=== PATIENT | male | born 1960 | race Caucasian/White ===

== ENCOUNTER 2023-12-05 00:47 | Emergency (ER) | payer OTHER, SELFPAY ==
[2023-12-05 00:49] VITALS: BP 146/98
--- NOTE | 2023-12-05 01:12 | ED.GENMED ---
History of Present Illness
<BERNARD Virgen - Last Filed: 12/05/23 01:37>
General
Chief Complaint: Back Pain
Source: patient
Exam Limitations: none
Time Seen by Provider: 12/05/23 00:52
Nursing documentation reviewed up to this point in time: agreed with
Travel History
Have you had any contact with someone who has COVID-19?: No
Do you have any symptoms of coronavirus? Fever > 100 degrees, chills, cough, shortness of breath, sore throat, loss of taste or smell, muscle aches, or headache?: No
History of Present Illness
History of Present Illness:
63 y/o M presents to ED complaining of back pain. Patient was seen in ED about 1 month after a fall backwards onto ice. Patient XR showed no fracture, only degenerative disease. Patient was discharged home with Ibuprofen. He reports the pain was
constant since his fall but was getting better in the last week. He has been sleeping on the chair for first 3 weeks but switched back to his bed this past week. Tonight, he complains of worsening back pain after he was rolling out of bed. He states
the pain is in his midback. Currently pain is 9/10 and comes around his flank to the front of his abdomen. Patient states the pain is worse with laying down and better with sitting up. He has difficulty moving his back and getting dressed. Patient
has been on Ibuprofen 800mg, 4 pills every 8 hours and Tylenol every 4 hours. Last Ibuprofen at 2300. Patient states medication takes edge off but does not resolve the pain completely. 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
since his fall. He reports he has been trying to limit heavy lifting. Patient denies radiation of pain, numbness/tingling, bruising, incontinence, SOB or neck pain.
Past History
<BERNARD Virgen - Last Filed: 12/05/23 01:37>
Past History
ED Past Medical History: Asthma
ED Past Surgical History: None
Social History
Tobacco: Former smoker
Alcohol: Occasional
Drug: None
Personal:
Living: with family
Employment: Employed
Family History
Family History: CAD
Review of Systems
<Mikelorenzo Mohr, BERNARD Last Filed: 12/05/23 01:37>
Review of Systems
Allergies reviewed?: Yes
All Other Systems: ROS reviewed and negative except as documented in HPI and ROS
Constitutional: Reports no symptoms
EENT: Reports no symptoms
Respiratory: Reports no symptoms
Cardiac: Reports no symptoms
ABD/GI: Reports no symptoms
: Reports no symptoms
Musculoskeletal: Reports back pain
Skin: Reports no symptoms
Neurological: Reports no symptoms
Endocrine: Reports no symptoms
Hematologic/Lymphatic: Reports no symptoms
Psychiatric: Reports no symptoms
Phy Exam
<Mikelorenzo Mohr [place] - Last Filed: 12/05/23 01:37>
General Physical Exam
General Presentation: well appearing and mild distress
General age: appears stated age
General Skin: warm and dry
General Habitus: normal
General Mental: alert
General Hydration: appears well hydrated
Cardiovascular Exam
Cardiovascular Exam: regular rate/rhythm, no edema, no gallop and no murmur
Pulmonary Exam
Pulmonary Exam: lungs clear, no respiratory distress, no rales, no crackles and no rhonchi
Musculoskeletal Exam
Musculoskeletal Exam: back pain, back tenderness (tender along R midback and R flank ), neuro vasc intact and other (limited ROM of back secondary to pain )
Skin Exam
Skin Exam: normal color, warm/dry and no rash
Psychiatric Exam
Psychiatric Exam: normal mood/affect
Course
<Mikelorenzo Mohr BERNARD - Last Filed: 12/05/23 01:37>
Orders/Labs/Results
Orders:
Orders
12/05/23 01:34
Ketorolac [Toradol] 60 mg IM NOW STA
Ribs, Right 3 View W/PA Chest [CR Ribs-right 3 Vw W/pa Chest*] Urgent
Comment:
Reason For Exam: persistent severe R post lat thorax pain
12/05/23 02:47
Tramadol HCl [Ultram] 50 mg PO NOW STA
Vital Signs
Initial and Last Documented VS:
Initial Vital Signs
Temp Pulse Resp BP Pulse Ox
97.4 F 90 18 146/98 98
12/05/23 00:49 12/05/23 00:49 12/05/23 00:49 12/05/23 00:49 12/05/23 00:49
Last Documented Vital Signs
Temp Pulse Resp BP Pulse Ox
97.4 F 90 18 146/98 98
12/05/23 00:49 12/05/23 00:49 12/05/23 00:49 12/05/23 00:49 12/05/23 00:49
<Alma Hussein DO - Last Filed: 12/05/23 02:55>
Orders/Labs/Results
Orders:
Orders
12/05/23 01:34
Ketorolac [Toradol] 60 mg IM NOW STA
Ribs, Right 3 View W/PA Chest [CR Ribs-right 3 Vw W/pa Chest*] Urgent
Comment:
Reason For Exam: persistent severe R post lat thorax pain
12/05/23 02:47
Tramadol HCl [Ultram] 50 mg PO NOW STA
Vital Signs
Initial and Last Documented VS:
Initial Vital Signs
Temp Pulse Resp BP Pulse Ox
97.4 F 90 18 146/98 98
12/05/23 00:49 12/05/23 00:49 12/05/23 00:49 12/05/23 00:49 12/05/23 00:49
Last Documented Vital Signs
Temp Pulse Resp BP Pulse Ox
97.4 F 90 18 146/98 98
12/05/23 00:49 12/05/23 00:49 12/05/23 00:49 12/05/23 00:49 12/05/23 00:49
<BERNARD Virgen - Last Filed: 12/05/23 01:37>
MDM/Problems Addressed
Differential Diagnosis Includes:
Back strain
Rib fracture
Muscle spasm
MDM/Problems Addressed:
Patient presents with worsening back pain tonight after fall 1 month ago. Patient may have rib fracture given location of tenderness along rib lines and pain with movement. Patient had XR done 1 month ago that showed no fracture. However, fracture
may have not been visualized or patient may have reinjured back since he has returned to work. Will order XR to rule out. If XR negative, likely back strain or possible muscle spasm.
<BERNARD Virgen - Last Filed: 12/05/23 01:37>
*Critical Care Note
Total Time (30-74mins, 75-104mins- exclusive of procedures): Not Applicable
<Alma Hussein DO - Last Filed: 12/05/23 02:55>
*Radiology
Radiology exam reviewed: preliminary read by ED provider (X-ray shows posterior fractures of right sixth, seventh, eighth ribs. Lung rhodes are clear. No pneumothorax nor pleural effusion.)
*Pulse Oximetry
Patient hypoxic: no
ED Attending Note
<BERNARD Virgen - Last Filed: 12/05/23 01:37>
-
Portions of this chart may have been created with voice recognition software.� Occasional wrong word or��sound alike� substitutions may have occurred due to the inherent limitations of voice recognition software.
<Alma Hussein DO - Last Filed: 12/05/23 02:55>
ED Attending Note
Patient seen and examined by attending physician: Yes
I performed the substantive portion of visit, reviewed & personally made and approve the management plan that is documented in note by myself or ALIS.: Yes
I performed a history and physical exam of patient and discussed management with resident, I reviewed resident's note and agree with documented findings and plan of care.: Yes
ED Attending Note:
This is a 63-year-old gentleman who suffered a slip and fall pin chaser November 01, falling onto his back with significant right sided thoraco-lumbar pain.
He was evaluated in this ED afternoon of 11/01/23. Noted to have moderate pain right thoracolumbar, worse with twisting, bending of trunk. Mildly worse with deep breath. T and L spine xrays as well as R rib with CXR showed mild DJD, no fx.
He has had persistent moderate pain since that fall and has been taking ibuprofen 4x/day. He followed up with his PCP shortly after that visit and Rx short course tramadol and muscle relaxer.
He returned to work 2 weeks ago, in construction but has been 'takin git easy' Has not been lifting nor bending.
Pain slowly improving over this past week until tonight when patient attempted to get up out of bed and he felt abrupt pull, increased pain in his right mid to lower thoracic back region that radiates around. Pain currently similar in intensity as
the first week after his fall. He has not had a cough nor shortness of breath but does admit that pain is mildly worse with deep breath. Pain is worse with twisting and bending, worse with lifting his right arm over his head.
He is also noted occasional clicking sensation right thoracic back region when lying in bed and rolling over.
He denies abdominal pain, denies nausea or vomiting, no diarrhea or constipation. No difficulty moving his bowels or bladder. No leg pain nor weakness nor numbness. No saddle anesthesia. He has not had a rash nor fever.
He has driven himself to the ED.
GENERAL: 63-year-old gentleman appears his stated age. He is fully dressed sitting upright on bench in exam room. Bright and alert, somewhat resistant to move otherwise appears in no acute distress.
EYE: anicteric
NECK: Supple, nontender, no meningismus, no significant adenopathy.
ENT: oral mucosa is moist. No rhinorrhea.
CARDIAC: Regular rate and rhythm. no murmur.
LUNGS: no acute respiratory distress, scant dry rales right base. There is moderate TTP right mid to distal posterior costal region. No scapular tenderness. No palpable bony abnormality nor palpable crepitus.
ABDOMEN: Rotund, Soft, nondistended, without focal tenderness, no r/g, no cvat. normoactive BS.
NEUROLOGICAL: Alert and oriented x3, no focal neuro deficits. Gait is steady.
SKIN: Warm and dry, normal color, skin intact. No rash.
MUSCULOSKELETAL: No C/C/E. peripheral pulses are full and equal b/l. No palpable tenderness.
PSYCH: Normal and appropriate interaction.
Concern for occult right posterior rib fx, fx's. Intercostal muscle strain. Other consideration is thoracic intercostal neuralgia.
Pt has not had a cough, no fever thus pneumonia is less likely but he may have element of right basilar atelectasis, pleural effusion. PTX less likely.
Nothing in history nor exam to suggest intra-abdominal etiology.
No rash nor hx of rash, thus Shingles is unlikely.
Nothing in history nor exam to suspect acute cord syndrome. No neurologic deficits.
Will medicate with toradol and due to concern for occult fx not visible on initial xrays, will recheck Right rib series with CXR.
12/05/2023 0253 AM
Patient reports mild improvement in pain after IM dose of Toradol.
He is up and about, ambulatory with slow but steady gait.
X-ray shows acute fractures of right posterior sixth, seventh, eighth ribs. Lung rhodes are clear. No pneumothorax nor pleural effusion.
Upon further review of rib series from 1 month ago there is a subtle fracture noted of the posterior seventh rib.
Recommend continuing ibuprofen and will add short course of tramadol for pain.
Recommend supportive measures, sleeping in a recliner. Continue to avoid bending, twisting, lifting activities.
Prompt follow-up with primary care physician for recheck.
Discharge Plan
Departure
Patient Disposition: Home (Routine Discharge)
Date of Disposition: 12/05/23
Time of Disposition: 02:47
Patient with high blood pressure during this ER visit?: No
Condition: Good
Discharge Problem:
RIGHT POSTERIOR RIB FRACTURES
Instructions: Rib Fracture (DC)
Prescriptions:
New
tramadol 50 mg tablet
50 mg PO TID PRN (Reason: Pain) Qty: 30 0RF
No Action
budesonide-formoterol [Symbicort] 1 PUFF HFA aerosol inhaler
2 puff inhalation R BID
aspirin 81 MG tablet,delayed release (DR/EC)
81 mg PO DAILY 0RF
nifedipine 30 mg Tablet Extended Release
30 mg PO BID Qty: 60 0RF
Referrals:
Varun Barrett MD [Family Provider] - Call in 1-3 days for appt
Interventions
Interventions:
*Risk Screen - Suicide Last Done: 12/05/23 00:49
*General Assessment Last Done: 12/05/23 01:00
*Neglect/Abuse Screening Last Done: 12/05/23 00:49
ED- Fall Risk Assessment Last Done: 12/05/23 01:00
*ED COVID-19 Vaccine History Last Done: 12/05/23 01:00
ED-Musculoskeletal Assessment Last Done: 12/05/23 01:00
[2023-12-05] MEDS: TORADOL 60 MG IM (01:56)
[2023-12-05] MEDS: ULTRAM 50 MG PO (02:52)
== END 2023-12-05 02:55 | disposition home or self-care (01) ==
LOC: EMR 00:47
PROVIDERS: EMERGENCY PHYSICIAN Emergency Medicine; FAMILY PHYSICIAN Internal Medicine
DX: S22.41XA Multiple fractures of ribs, right side, initial encounter for closed fracture (principal); W00.0XXA Fall on same level due to ice and snow, initial encounter; J45.909 Unspecified asthma, uncomplicated; G43.909 Migraine, unspecified, not intractable, without status migrainosus; I25.2 Old myocardial infarction; Z95.5 Presence of coronary angioplasty implant and graft; Z87.01 Personal history of pneumonia (recurrent); Z87.891 Personal history of nicotine dependence; Z88.0 Allergy status to penicillin; Z91.048 Other nonmedicinal substance allergy status
CPT/HCPCS: 99284; 96372; 71101

== ENCOUNTER 2024-03-25 06:33 | Day surgery (SDC) | payer OTHER, SELFPAY ==
[2024-03-25] VITALS (10 sets, daily range): BP systolic 140–172; BP diastolic 83–92; BMI 31.5
[2024-03-25] MEDS: TYLENOL 1000 MG PO (13:01)
[2024-03-25] MEDS: NORMOSOL-R 1000 IV (13:01)
--- NOTE | 2024-03-25 15:40 | W.IMMPOSTOP ---
Addendum entered and electronically signed by Nolan Espino MD 03/25/24 15:43:
NOTE ENTERED IN ERROR - WRONG PATIENT PLEASE DISREGARD
Original Note:
Surgical Immed Post Op Note
-
Primary Surgeon: Kenzie
Assisting: Pk MEIER
Pre-op Diagnosis: Bilateral inguinal hernias and incarcerated umbilical hernia
Post-op Diagnosis: Incarcerated umbilical and right inguinal and left inguinal hernias
Procedure Performed: Robot assisted laparoscopic repair of incarcerated right inguinal hernia, incarcerated umbilical hernia and left inguinal hernia
Anesthesia Type: GETA
Specimen / Cultures: None
Estimated Blood Loss: 5cc
Complications: None immediate
Operative Findings: Tiny direct defect (closed with 2-0 vicryl) on the right plus moderate sized indirect defect and large cord lipoma, left indirect hernia with moderate cord lipoma, B/L XL MID 3D max; 1cm umbilical defect with incarcerated fat,
8cm soft mesh (rTAPP)
--- NOTE | 2024-03-25 15:43 | OR.RPT ---
Operative Report
Operative Report
Primary Surgeon: Kenzie
Assisting: Pk MEIER
Pre-op Diagnosis: Incarcerated umbilical hernia
Post-op Diagnosis: Incarcerated umbilical hernia
Procedure Performed: Robot assisted laparoscopic repair of incarcerated umbilical hernia (rTAPP, 2cm)
Anesthesia Type: GETA + TAP block
Specimen / Cultures: None
Estimated Blood Loss: 5cc
Complications: None immediate
Operative Findings: 2cm umbilical hernia with incarcerated fat, 12cm soft mesh
Date of surgery: 03/25/24
Indications:� This 64M developed a symptomatic umbilical hernia. Robot assisted laparoscopic repair was planned.
Description of procedure:� The patient was taken to the operating room and positioned into supine position. The patient�s abdomen was prepped and draped in standard sterile fashion. A time-out was completed verifying correct patient, procedure,
site, positioning, and implants and special equipment prior to beginning this procedure.� The hernia was manually reduced after induction. A stab incision was made in the left upper quadrant, a Veress needle was inserted and proper position was
confirmed by aspiration and saline drop test. Following this, pneumoperitoneum was created with insufflation of carbon dioxide to 12 mmHg. Then a 8mm robotic trocar was inserted at the left anterior axillary line at the level of the umbilicus. A
laparoscope was inserted and the area of initial trocar entry and Veress needle placement were both inspected and no injuries were found. Two 8mm trocars were then placed a hand's breadth above and below the initial trocar under direct visualization.
Attention was turned to the umbilicus. The peritoneum was incised several cm superior to the defect adjacent to the midline. This incision was carried inferiorly and toward the left side in a curvilinear fashion. A flap was developed with blunt and
sharp dissection in the caudad direction. The hernia was identified and measured 2cm, incarcerated fat was reduced and the hernia was closed with 0 PDS stratafix suture. A 12 x 12cm piece of bard soft mesh was passed into the abdomen and placed
flush against the abdominal wall centered on the defect. The mesh was secured at all four corners with 2-0 vicryl suture. The flap was closed with 2-0 monocryl suture. A 14g angiocath was used to decompress the preperitoneal space revealing good
seal and all mesh in good position without folding or curling. A transversus abdominis plane block was then performed under laparoscopic vision with marcaine/decadron.
After ensuring adequate hemostasis, the trocars were removed and the pneumoperitoneum allowed to escape. The trocar incisions were closed at the skin level using 4-0 monocryl and topical skin adhesive. All counts were correct and the patient
tolerated the procedure well and was taken to the postanesthesia care unit in stable condition.
The assistance of Pk MEIER was required due to the complexity of the procedure. During the procedure he assisted with retraction, resection, and closure of the wound.
[2024-03-25] MEDS: DILAUDID 0.25 MG IV ×2 (16:10→16:20)
== END 2024-03-25 17:35 | disposition home or self-care (01) ==
LOC: SDS 06:33
PROVIDERS: ATTENDING PHYSICIAN Surgery
DX: K42.0 Umbilical hernia with obstruction, without gangrene (principal)
CPT/HCPCS: 49592; C1781

== ENCOUNTER → 2024-06-19 15:41 | Outpatient (REF) | payer OTHER, SELFPAY | LOC: RAD 15:41 | PROVIDERS: ATTENDING PHYSICIAN Specialist; FAMILY PHYSICIAN Internal Medicine | DX: M79.662 Pain in left lower leg (principal) | CPT/HCPCS: 93971 ==

== ENCOUNTER → 2024-07-05 12:59 | Outpatient (REF) | payer OTHER, SELFPAY | LOC: RAD 12:59 | PROVIDERS: ATTENDING PHYSICIAN Physician Assistant; FAMILY PHYSICIAN Internal Medicine | DX: M79.89 Other specified soft tissue disorders (principal) | CPT/HCPCS: 74177; Q9967 ==

== ENCOUNTER → 2025-03-13 10:52 | Outpatient (REF) | payer MEDICARE, OTHER, SELFPAY | LOC: HWRAD 10:52 | PROVIDERS: ATTENDING PHYSICIAN Nurse Practitioner Adult Health; FAMILY PHYSICIAN Internal Medicine | DX: Z87.891 Personal history of nicotine dependence (principal) | CPT/HCPCS: 71271 ==